=== PATIENT | female | born 1995 | race Caucasian/White ===

== ENCOUNTER 2017-09-01 17:58 | Outpatient (CLI) | payer OTHER ==
--- NOTE | 2017-09-01 20:15 | RAD ---
RIGHT FOOT THREE VIEWS: 09/01/17 HISTORY: Foot injury in 2016 still with persistent pain. COMPARISON: An 07/09/16 right ankle examination. There is no signs of old or new fracture. No other bony changes, IMPRESSION: Negative right foot. POS: CANDIS
== END 2017-09-01 17:59 | disposition home or self-care (01) ==
LOC: SCSRAD 17:58
PROVIDERS: ATTEND Family Medicine
DX: M79.671 Pain in right foot (principal)

== ENCOUNTER 2019-03-26 08:21 | Day surgery (SDC) | payer OTHER ==
--- NOTE | 2019-03-26 13:15 | OP ---
DATE OF PROCEDURE: 03/26/2019 PREOPERATIVE DIAGNOSES: Intermittent nausea and vomiting, alternating constipation and diarrhea with occasional rectal bleeding. Previous evaluation in [facility] in November showed a normal CAT scan of the abdomen and pelvis. Normal CBC and comprehensive metabolic profile. Similar studies were performed at [facility] in 2017. TSH normal in my office. Celiac panel negative in my office. POSTOPERATIVE DIAGNOSES: 1. Normal esophagogastroduodenoscopy, except for mild reflux esophagitis. 2. Normal ileal colonoscopy up to including the terminal ileum with no evidence of inflammation, Crohn's, polyps, masses, or lesions. Small internal hemorrhoids noted on endoscopically on retroflexion, likely causes intermittent rectal bleeding. RECOMMENDATIONS: 1. Trial of Prilosec 20 mg as prescribed. 2. Trial of Bentyl p.r.n. for abdominal pain or discomfort. 3. I suspect most of her symptoms are related to irritable bowel. We will recommend low FODMAP diet. 4. Follow up in my office in 4 to 6 weeks. If symptoms persist, could consider further evaluation of the gallbladder with either ultrasound or HIDA scan. ADDENDUM: She did have 2 areas of mild gastritis in the antrum of the stomach. Biopsies were taken and submitted to Pathology for mild erosive gastritis. Job ID: [id number]
== END 2019-03-26 11:43 | disposition home or self-care (01) ==
LOC: SDC 08:21
PROVIDERS: ATTEND Internal Medicine Gastroenterology
PROC: 0DB78ZX Excision of Stomach, Pylorus, Via Natural or Artificial Opening Endoscopic, Diagnostic (ICD-10-PCS; principal; 2019-03-26)
PROC: 0DJD8ZZ Inspection of Lower Intestinal Tract, Via Natural or Artificial Opening Endoscopic (ICD-10-PCS; principal; 2019-03-26)
DX: K29.50 Unspecified chronic gastritis without bleeding (principal); K31.89 Other diseases of stomach and duodenum; K21.0 Gastro-esophageal reflux disease with esophagitis; K64.8 Other hemorrhoids; D64.9 Anemia, unspecified; F41.9 Anxiety disorder, unspecified; J45.909 Unspecified asthma, uncomplicated; Z88.6 Allergy status to analgesic agent; Z88.5 Allergy status to narcotic agent
CPT/HCPCS: 88305; 88312